=== PATIENT | female | born 1975 | race Caucasian/White ===

== ENCOUNTER 2017-08-05 19:33 | Emergency (ER) | payer MEDICARE, MEDICAID ==
[~2017-08-05] VITALS: Ht 167.6 cm; Wt 64.0 kg
[2017-08-05] MEDS ORDERED: TETanus/Pertussis (Acell)/Diphther VAC/PF (Tdap-Adult) 0.5ml syringe IM ONE (21:35)
[2017-08-05] MEDS ORDERED: LIDOcaine 1.5% w/epinephrine 1:200,000 5ml ampul IJ ONE (21:35)
[2017-08-05] MEDS ORDERED: amox tr/potassium clavulanate 875/125mg TAB PO ONE (22:20)
[2017-08-05] MEDS ORDERED: ketorolac trometh. 30mg/ml inj. IM ONE (22:20)
[2017-08-05] MEDS ORDERED: AMOX-422 PO (22:23)
[2017-08-05 22:45] VITALS: BP 130/82
== END 2017-08-05 23:10 | disposition home or self-care (01) ==
LOC: ER 19:34
DX: N76.4 Abscess of vulva (principal); N75.8 Other diseases of Bartholin's gland; F17.200 Nicotine dependence, unspecified, uncomplicated; G89.29 Other chronic pain; M54.9 Dorsalgia, unspecified; Z88.5 Allergy status to narcotic agent
CPT/HCPCS: 56405; 90471; 90715; 96372; 99284; J1885; J3490

== ENCOUNTER 2018-03-13 14:41 | Emergency (ER) | payer MEDICARE, MEDICAID ==
[~2018-03-13] VITALS: Ht 167.6 cm; Wt 64.1 kg
[2018-03-13] MEDS ORDERED: dexamethasone sod phosphate 10mg/ml inj IM STA (15:42)
[2018-03-13] MEDS ORDERED: CYCL-1 PO (15:43)
[2018-03-13] MEDS ORDERED: ketorolac trometh inj. 60 MG/2 ML VIAL IM ONE (15:45)
[2018-03-13 16:07] VITALS: BP 122/72
== END 2018-03-13 16:09 | disposition home or self-care (01) ==
LOC: ER 14:42
DX: M54.12 Radiculopathy, cervical region (principal); M48.02 Spinal stenosis, cervical region; G89.29 Other chronic pain; Z88.5 Allergy status to narcotic agent
CPT/HCPCS: 72040; 96372; 99284; J1100; J1885

== ENCOUNTER → 2020-04-20 | Outpatient (CLI) | payer MEDICARE, MEDICAID ==
[~2020-04-20] MED LIST: CYCL-1 PO
== END | disposition home or self-care (01) ==
LOC: RAD 10:13
PROVIDERS: ATTEND Family Medicine
DX: G40.909 Epilepsy, unspecified, not intractable, without status epilepticus (principal)
CPT/HCPCS: 95819

== ENCOUNTER 2022-06-07 16:30 | Emergency (ER) | payer MEDICARE, MEDICAID ==
[~2022-06-07] VITALS: Ht 167.6 cm; Wt 64.5 kg
[2022-06-07 17:37] VITALS: BP 140/81
[2022-06-07 19:10] LABS: BASOPHILS % (AUTO) 0.2 % (0-1); EOSINOPHILS % (AUTO) 0.1 % (0-6); HEMOGLOBIN 13.4 g/dl (12.0-16.0); LYMPHOCYTES # (AUTO) 0.7 X10'3 (1.1-4.8); LYMPHOCYTES % (AUTO) 4.1 % (21-51); MEAN CORPUSCULAR HEMOGLOBIN 33.6 PG (27.0-31.0); MEAN CORPUSCULAR HGB CONC 34.2 g/dL (33.0-36.5); MEAN PLATELET VOLUME 7.5 FL (7.4-10.4); MONOCYTES # (AUTO) 1.1 X10'3 (0-0.9); MONOCYTES % (AUTO) 6.7 % (2-12); NEUTROPHILS # (AUTO) 14.6 X10'3 (1.8-7.7); NEUTROPHILS % (AUTO) 88.9 % (42-75); PLATELET COUNT 300 X10'3 (140-440); RED BLOOD COUNT 3.98 X10'6 (4.20-5.60); WHITE BLOOD COUNT 16.4 X10'3 (4.5-11.0)
[2022-06-07 19:12] LABS: ALANINE AMINOTRANSFERASE 18 U/L (12-78); ALBUMIN/GLOBULIN RATIO 1.1 (1.1-1.5); ALKALINE PHOSPHATASE 83 IU/L (46-116); ANION GAP 12 (8-16); ASPARTATE AMINO TRANSFERASE 16 U/L (10-37); BILIRUBIN,TOTAL 0.2 MG/DL (0.1-1.0); BLOOD UREA NITROGEN 20 MG/DL (7-18); BUN/CREATININE RATIO 22.7 (6.6-38.0); CALCIUM 8.8 MG/DL (8.5-10.1); CHLORIDE 104 MMOL/L (99-107); CREATININE 0.88 MG/DL (0.40-0.90); GLUCOSE 139 MG/DL (70-104); LIPASE 76 U/L (73-393); POTASSIUM 3.5 MMOL/L (3.5-5.1); SODIUM 140 MMOL/L (135-145); TOTAL CARBON DIOXIDE 24.3 MMOL/L (24-32); TOTAL PROTEIN 7.7 G/DL (6.4-8.2); eGFR 69 ML/MIN
== END 2022-06-08 00:34 | disposition left against medical advice (07) ==
LOC: ER 16:31
DX: N93.9 Abnormal uterine and vaginal bleeding, unspecified (principal); Z53.21 Procedure and treatment not carried out due to patient leaving prior to being seen by health care provider
CPT/HCPCS: 80053; 83690; 85025

== ENCOUNTER 2022-10-05 15:01 | Outpatient (CLI) | payer MEDICARE, MEDICAID | END 2022-10-05 23:59 | disposition home or self-care (01) | LOC: CARD DIAG 15:01 | PROVIDERS: ATTEND Internal Medicine Cardiovascular Disease | DX: R42 Dizziness and giddiness (principal); R07.89 Other chest pain | CPT/HCPCS: 93306 ==